=== PATIENT | female | born 1950 | race Caucasian/White ===

== ENCOUNTER 2016-12-17 10:45 | Day surgery (SDC) | payer OTHER ==
[~2016-12-17] VITALS: Ht 162.6 cm; Wt 65.0 kg
[~2016-12-17 10:45] MED LIST: 0.9% Sodium Chloride 1,000 ML IV SCH; ALBU18HF INH; ASPI-973 PO; CLON-399 PO; FLUO20CA25 PO; LORA1TAB PO; PRAV20TA2 PO; Sodium Chloride LOK Flush 10 mL Syringe IV PRN; VALA500T38 PO; fentaNYL-PF 50 mCg/mL 2 mL Inj IVPUSH PRN
[2016-12-17 11:36] VITALS: BP 124/78; PULSE 68; RESP 14; O2SAT 96
[2016-12-17 12:40] VITALS: BP 117/68; PULSE 71; RESP 16; O2SAT 97
[2016-12-17 12:50] VITALS: BP 114/67; PULSE 74; RESP 16; O2SAT 96
--- NOTE | 2016-12-17 13:17 | ENDO ---
[address] [address] ENDOSCOPY PROCEDURE PATIENT: BENITA MERCEDES : 1950 MR#: [id number] ADMIT: 12/17/2016 JOB ID: [id number] DATE: 12/17/2016 PROCEDURE: Colonoscopy. INDICATION: Patient with a personal history of adenomatous colon polyps. Patient's ASA classification is two. Mallampati score is two. MEDICATIONS: Versed 5 mg, fentanyl 100 mcg. INSTRUMENT USED: PCF H 180 AL PREPARATION QUALITY: Fair. PROCEDURE DETAILS: After informed consent was obtained, the patient was brought into the GI suite, where she was placed on oxygen via nasal cannula and monitored with continuous pulse oximeter, telemetry, and blood pressure monitoring. A time-out was performed, then she was placed in the left lateral decubitus position and medications were administered for sedation. Digital rectal exam was performed, which was unremarkable. The colonoscope was then inserted into the rectum and advanced under direct visualization to the cecum, which was identified by the presence of the ileocecal valve and appendiceal orifice. Once the cecum was reached, the colonoscope was withdrawn back into the rectum as the mucosa and lumen were examined. In the rectum, retroflexion was performed. Following retroflexion, the remaining air in the rectum was suctioned and the procedure was completed. FINDINGS: Normal exam from rectum to cecum. IMPRESSION: Normal colonoscopy. RECOMMENDATIONS: Repeat colonoscopy in five years. COMPLICATIONS: None. ESTIMATED BLOOD LOSS: Less than 5 mL.
== END 2016-12-17 23:59 | disposition home or self-care (01) ==
LOC: END 10:45
PROVIDERS: ATTEND Internal Medicine Gastroenterology
DX: Z12.11 Encounter for screening for malignant neoplasm of colon (principal); Z86.010 Personal history of colon polyps; Z80.0 Family history of malignant neoplasm of digestive organs; I10 Essential (primary) hypertension; E78.5 Hyperlipidemia, unspecified; F43.10 Post-traumatic stress disorder, unspecified; F32.9 Major depressive disorder, single episode, unspecified; J45.909 Unspecified asthma, uncomplicated; Z87.891 Personal history of nicotine dependence; Z79.82 Long term (current) use of aspirin
CPT/HCPCS: G0105; G0500; J2250; J3010; J7030